=== PATIENT | female | born 1970 | race Caucasian/White ===

== ENCOUNTER 2017-01-16 15:20 | Inpatient (IN) | payer MEDICAID ==
[2017-01-16] MEDS ORDERED: FENTANYL 250 MCG/5 ML VIAL ONE ×2 (15:50→15:51)
[2017-01-16] MEDS ORDERED: FENTANYL 100 MCG/2 ML VIAL ONE ×3 (16:00→20:38)
[2017-01-16] MEDS ORDERED: LIDOCAINE HCL 1% 20 ML VIAL ONE (18:14)
[2017-01-16 18:49] LABS: BLOOD UREA NITROGEN 20 mg/dL (7-17); CALCIUM 9.3 mg/dL (8.4-10.2); CHLORIDE 107 mmol/L (98-107); CREATININE 0.7 mg/dL (0.5-1.0); EST GLOMERULAR FILTRATION RATE > 60 mL/min; GLUCOSE 108 mg/dL (70-100); POTASSIUM 4.5 mmol/L (3.5-5.1); SODIUM 141 mmol/L (137-145)
[2017-01-16 18:52] LABS: HEMATOCRIT 44.4 % (36.0-48.0); HEMOGLOBIN 15.3 g/dL (12.0-16.0); MEAN CELL VOLUME 86.5 fL (80.0-100.0); MEAN CORPUS. HGB CONCENTRATION 34.5 g/dL (32.0-36.0); MEAN CORPUSCULAR HEMOGLOBIN 29.8 pg (29.0-35.0); MEAN PLATELET VOLUME 8.4 fL (7.4-10.4); PLATELET COUNT 385 X 10^3uL (130-440); RED BLOOD COUNT 5.14 X 10^6uL (4.20-6.10); RED CELL DISTRIBUTION WIDTH 13.5 % (11.5-14.5); WHITE BLOOD COUNT 14.2 X 10^3uL (3.9-10.7)
[2017-01-16 18:54] LABS: INR 0.8
[2017-01-16] MEDS ORDERED: ceFAZolin 1 GM in NORMAL SALINE MINI-BAG+ 100 ML IV ONE (20:27)
[2017-01-16] MEDS ORDERED: ACETAMINOPHEN 325 MG TABLET PO PRN (20:27)
[2017-01-16] MEDS ORDERED: ONDANSETRON HCL 4 MG/2 ML VIAL IV PRN (20:27)
[2017-01-16] MEDS ORDERED: NICOTINE 21 MG PATCH ONE (20:46)
[2017-01-16] MEDS ORDERED: LORazepam 1 MG TABLET ONE (21:04)
--- NOTE | 2017-01-16 21:23 | ER PHYSICIAN DOCUMENTATION ---
Physician Documentation [facility] Name:Viviana Oakley Age:46 yrs Sex:Female :1970 Arrival Date:01/16/2017 Time:15:20 Bed6 Private MD: Zaire Cavanaugh Disposition: 01/16/17 19:17 Admit ordered for Gabriel Puga. Preliminary diagnosis is Distal Radius Fracture - : Acute, Left, Displaced. - Bed requested for Medical/Surgical. - Condition is Fair. - Problem is new. - Symptoms have improved. 23 HR OBS Yes HPI: 01/16 15:30 This 46 yrs old Female presents to ER via EMS with complaints of Arm Injury - cd LEFT. 15:30 The patient or guardian complains of decreased range of motion, deformity, injury. The cd complaints affect the left wrist. Context: The problem was sustained at a Roller skating [place], resulted from a fall, on an outstretched hand. Onset: The symptom(s)/episode began/occurred acutely, just prior to arrival. Treatment prior to arrival includes: prescription medications, splinting the affected extremity. Associated signs and symptoms: Pertinent positives: decreased range of motion, deformity, pain, swelling, tingling, in hand. Severity of symptoms: At their worst the symptoms were severe, in the emergency department the symptoms are unchanged. The patient has not experienced similar symptoms in the past. Historical: - Allergies: Aspirin; Positive latex allergy; Levaquin; - Home Meds: 1. Advair Diskus Inhl - PMHx: COPD; - PSHx: left ankle surg for fx; HYSTERECTOMY; CHOLECYSECTOMY; - Tetanus: < 10 years. - Ebola Screening: : Patient negative for fever greater than or equal to 101.5 degrees Fahrenheit, and additional compatible Ebola Virus Disease symptoms. Patient denies exposure to infectious person. Patient denies travel to an Ebola-affected area in the 21 days before illness onset. No symptoms or risks identified at this time. . - Immunization history: Unable to Obtain. - Social history: Smoking status: Patient states former smoker of tobacco. Patient/guardian denies using alcohol. ROS: 15:43 Cardiovascular: Negative for chest pain, palpitations, edema and pleuritic pain. cd Respiratory: Negative for shortness of breath, dyspnea on exertion, cough, sputum production, wheezing, hemoptysis and pleuritic chest pain. Abdomen/GI: Negative for abdominal pain, nausea, vomiting, diarrhea, constipation, distension, melena, hematochezia and hematemesis. Back: Negative for injury, pain or muscle spasms. 15:43 Skin: Negative for injury, rash, itching and discoloration. cd 15:43 Constitutional: Positive for poor PO intake. 15:43 MS/extremity: Positive for injury or acute deformity, decreased range of motion, deformity, pain, swelling, tingling, of the left wrist. 15:43 All other systems are negative. Exam: Head/Face: Normocephalic, atraumatic. Neck: Trachea midline, no thyromegaly or masses palpated, and no cervical lymphadenopathy. Supple, full range of motion without nuchal rigidity, or vertebral point tenderness. No Meningismus. Chest/axilla: Normal chest wall appearance and motion. Nontender with no deformity. No lesions are appreciated. Cardiovascular: Regular rate and rhythm with a normal S1 and S2. No gallops, murmurs, or rubs. Normal PMI, no JVD. No pulse deficits. Respiratory: Lungs have equal breath sounds bilaterally, clear to auscultation and percussion. No rales, rhonchi or wheezes noted. No increased work of breathing, no retractions or nasal flaring. Abdomen/GI: Soft, non-tender, with normal bowel sounds. No distension or tympany. No guarding or rebound. No evidence of tenderness throughout. Back: No spinal tenderness. No costovertebral tenderness. Full range of motion. 15:43 Skin: Warm, dry with normal turgor. Normal color with no rashes, no lesions, and no cd evidence of cellulitis. 15:43 Constitutional: The patient appears alert, awake, non-diaphoretic, non-toxic, well developed, well nourished, anxious, in obvious distress, severely distressed. 15:43 Musculoskeletal/extremity: Extremities: grossly normal except: noted in the left wrist: decreased ROM, deformity, pain, swelling, ROM: the patient is contracted, Circulation is intact in all extremities. Tingling of extremity. Vital Signs: 15:29 BP 132 / 79 (auto/); Pulse 104; Resp 22; Temp 98.9; Pulse Ox 94% on 3 lpm NC; Pain 8/10;rs 15:32 Pulse Ox 95% ; rs 15:42 Pulse Ox 96% ; rs 15:57 Pulse Ox 96% ; rs 16:30 BP 116 / 80; Pulse 100; Pulse Ox 97% on 2 lpm NC; st 17:59 Temp 100.4; st 17:59 Pulse 113; Pulse Ox 94% ; st 18:32 Pulse Ox 97% ; rs 18:32 Pulse 90; Resp 20; Pulse Ox 97% on 3 lpm NC; Pain 4/10; rs 18:47 BP 129 / 94 (auto/); Pulse 95; Resp 20; Pain 7/10; rs 18:47 Pulse Ox 96% on 3 lpm NC; rs 18:52 Pulse Ox 97% ; rs Jimmy Coma Score: 15:43 Eye Response: spontaneous(4). Verbal Response: oriented(5). Motor Response: obeys cd commands(6). Total: 15. Procedures: 15:43 Reduction: of the left wrist, using traction, manipulation, Immobilized with OCL cd splint, Patient tolerated poorly. Post reduction film - reveals improved alignment. MDM: 15:29 Patient medically screened. cd 15:43 Physician consultation: Gabriel Puga DO was called at 18:15, was contacted at 18:15, cd regarding admission, to the floor, consult, patient's condition, need to come to ED to see patient, and will see patient in ED, shortly, later today, Admit orders by Dr. Puga. Will see patient in ED tonight.. 15:45 Differential diagnosis: closed fracture, Needs ORIF. cd 15:50 Data interpreted: Pulse oximetry: on room air is 97 %. Interpretation: normal. cd 16:10 Test interpretation: by ED physician or midlevel provider: plain radiologic studies, cd Left Wrist X-Ray reveals a comminuted distal radius fracture with loss of volar tilt.. 17:50 Counseling: I had a detailed discussion with the patient and/or guardian regarding: the cd historical points, exam findings, and any diagnostic results supporting the discharge/admit diagnosis, lab results, radiology results, the need for further work-up and treatment in the hospital. Response to treatment: the patient's symptoms have mildly improved after treatment, Patient still having significant pain in spite of reduction and splinting. IV pain meds have not appreciably reduced the pain, and as a result, I will admit patient. 18:10 Data reviewed: vital signs, nurses notes, EMS record, old medical records, radiologic cd studies, and as a result, I will admit patient, initiate a consult, with an orthopedic surgeon. 01/16 18:51 Order name: BASIC METABOLIC PANEL; Complete Time: 19:13 EDMS 01/16 18:51 Interpretation: Normal. 01/16 18:53 Order name: CBC WITHOUT A DIFFERENTIAL; Complete Time: 19:13 EDMS 01/16 19:13 Interpretation: Normal Except: WHITE BLOOD COUNT 14.2. 01/16 18:56 Order name: PROTIME/INR; Complete Time: 19:13 EDMS 01/16 19:13 Interpretation: Normal. 01/16 15:30 Order name: Ice Packs; Complete Time: 16:16 01/16 15:30 Order name: NPO; Complete Time: 16:16 cd 01/16 16:23 Order name: Iv Saline Lock; Complete Time: 18:29 cd 01/16 16:25 Order name: 12-lead EKG; Complete Time: 19:13 01/16 16:25 Order name: Iv Saline Lock; Complete Time: 18:33 rs Dispensed Medications: 16:00 Drug: fentaNYL [place] 50 mcg; Route: Intranasal; Site: right nare; rs 17:00 Follow up: Response: Pain is decreased rs 18:00 Drug: NS 0.9% 500 ml; Volume: 500 ml; Route: IV; Rate: bolus; Infused Over: 1 hrs; rs Site: right forearm; Delivery: [place] Tubing; 18:28 Drug: fentaNYL (PF) 50 mcg; Route: IVP; Rate: 25 mcg/min; Infused Over: 2 mins; Site: rs right forearm; 19:00 Follow up: Response: Pain is decreased rs 18:55 Drug: fentaNYL (PF) 50 mcg; Route: IVP; Rate: 25 mg/min; Infused Over: 2 mins; Site: rs right forearm; 19:40 Follow up: Response: Pain is decreased rs 19:25 Drug: fentaNYL (PF) 50 mcg; Route: IVP; Rate: 25 mcg/min; Infused Over: 2 mins; Site: rs right forearm; 20:00 Follow up: Response: Pain is decreased rs 20:30 Drug: fentaNYL (PF) 50 mcg; Route: IVP; Rate: 25 mcg/min; Infused Over: 2 mins; Site: rs right forearm; 21:05 Follow up: Response: Pain is decreased rs 20:34 Drug: Nicotine Patch 21 mg; Route: Transdermal; Site: anterior chest wall; fc 21:04 Follow up: Response: No adverse reaction rs 20:57 Drug: Ativan 1 mg; Route: PO; rs 21:07 Follow up: Response: No adverse reaction rs Signatures: Ana Maria Segura RN RN rs Zaire Huerta MD MD cd collins, floyd
--- NOTE | 2017-01-16 21:23 | ER NURSING DOCUMENTATION ---
Nurse's Notes [facility] Name:Viviana Oakley Age:46 yrs Sex:Female :1970 Arrival Date:01/16/2017 Time:15:20 Bed6 Private MD: Diagnosis:Distal Radius Fracture-: Acute, Left, Displaced Presentation: 01/16 15:31 Acuity: RUDI 3 st 15:31 Presenting complaint: Patient states: C/O pain returning in her left wrist. Denies rs other injuries. Denies neck pain. Did not hit her head. EMS states: Fell backwards onto her hands while roller skating, c/o left wrist pain. Denies other injuries. No IV. Was given Fentanyl 25 mcg intranasally twice by amb crew. Transition of care: Other [facility]. Notified ED Physician of patient's arrival and CC Dr. Huerta notified. 15:31 Method Of Arrival: EMS: 410 rs Triage Assessment: 15:58 General: Appears distressed, uncomfortable, well developed, well nourished, well rs groomed, Behavior is anxious, crying, pleasant. Pain: Complains of pain in left wrist Pain does not radiate. Pain currently is 8 out of 10 on a pain scale. Pain began suddenly. Neuro: No deficits noted. Level of Consciousness is awake, alert, Oriented to person, place, time, event. Cardiovascular: No deficits noted. Capillary refill < 3 seconds Pulses are 3+ in right radial artery and left radial artery. Respiratory: No deficits noted. Respiratory effort is even, unlabored, Respiratory pattern is regular, symmetrical. Derm: No deficits noted. Skin is pink, warm & dry. Musculoskeletal: Circulation, motion, and sensation intact Capillary refill < 3 seconds Bony deformity noted of left wrist. Historical: - Allergies: Aspirin; Positive latex allergy; Levaquin; - Home Meds: 1. Advair Diskus Inhl - PMHx: COPD; - PSHx: left ankle surg for fx; HYSTERECTOMY; CHOLECYSECTOMY; - Tetanus: < 10 years. - Ebola Screening: : Patient negative for fever greater than or equal to 101.5 degrees Fahrenheit, and additional compatible Ebola Virus Disease symptoms. Patient denies exposure to infectious person. Patient denies travel to an Ebola-affected area in the 21 days before illness onset. No symptoms or risks identified at this time. . - Immunization history: Unable to Obtain. - Social history: Smoking status: Patient states former smoker of tobacco. Patient/guardian denies using alcohol. Screenin:14 Infectious Disease Risk None. Abuse screen: Denies threats or abuse. Nutritional rs screening: No deficits noted. Assessment: 17:10 General: pt complains that her fingers are numb and tingly. splint was loosened. cap st refill less then 2 sec's before and after splint adjustment. . 19:03 Neuro: Reports numbness in left fingers. rs Vital Signs: 15:29 BP 132 / 79 (auto/); Pulse 104; Resp 22; Temp 98.9; Pulse Ox 94% on 3 lpm NC; Pain 8/10;rs 15:32 Pulse Ox 95% ; rs 15:42 Pulse Ox 96% ; rs 15:57 Pulse Ox 96% ; rs 16:30 BP 116 / 80; Pulse 100; Pulse Ox 97% on 2 lpm NC; st 17:59 Temp 100.4; st 17:59 Pulse 113; Pulse Ox 94% ; st 18:32 Pulse Ox 97% ; rs 18:32 Pulse 90; Resp 20; Pulse Ox 97% on 3 lpm NC; Pain 4/10; rs 18:47 BP 129 / 94 (auto/); Pulse 95; Resp 20; Pain 7/10; rs 18:47 Pulse Ox 96% on 3 lpm NC; rs 18:52 Pulse Ox 97% ; rs Jimmy Coma Score: 15:43 Eye Response: spontaneous(4). Verbal Response: oriented(5). Motor Response: obeys cd commands(6). Total: 15. ED Course: 15:21 Patient arrived in ED. ama 15:29 Zaire Huerta MD is Attending Physician. cd 15:[address] 15:33 Port Xray Completed. pm1 15:38 Ana Maria Segura, NOAM is Primary Nurse. rs 16:00 Notified ED Physician of patient's arrival and chief complaint. Dr. Huerta notified. Arm rs band placed on Bed in low position Call Light in Reach HOB Elevated Side rails up x1. X-ray done. 16:14 Pulse Ox - RN Monitoring Only. Door closed. Noise minimized. Lights dimmed. Verbal rs reassurance given. Diet: Patient is NPO. 16:15 Assist Provider Splinting. rs 16:36 Pt outside to smoke a cigarette (per MD order). Awaiting surgery, at 8 pm. rs 18:07 Assist Provider Assist provider with reduction using traction, Performed by Zaire urrutia MD Immobilized with OCL splint, ann wrap, Patient tolerated extreme pain, crying. 18:08 Inserted peripheral IV: 20 gauge in right forearm and blood collected. per Kylee REDMAN. rs 18:26 Port Xray Completed. pm1 19:05 ED physician of. Notified left finger numbness. rs 19:12 EKG done. (by ED staff). rs 19:15 Gabriel Puga DO, Brian Beach MD is Admitting Physician. cd 19:16 Admitting Physician role handed off by Gabriel Puga DO, Michael Grant, MD cd 19:16 Gabriel Puga DO is Admitting Physician. cd Administered Medications: 16:00 Drug: fentaNYL [place] 50 mcg; Route: Intranasal; Site: right nare; rs 17:00 Follow up: Response: Pain is decreased rs 18:00 Drug: NS 0.9% 500 ml; Volume: 500 ml; Route: IV; Rate: bolus; Infused Over: 1 hrs; rs Site: right forearm; Delivery: [place] Tubing; 18:28 Drug: fentaNYL (PF) 50 mcg; Route: IVP; Rate: 25 mcg/min; Infused Over: 2 mins; Site: rs right forearm; 19:00 Follow up: Response: Pain is decreased rs 18:55 Drug: fentaNYL (PF) 50 mcg; Route: IVP; Rate: 25 mg/min; Infused Over: 2 mins; Site: rs right forearm; 19:40 Follow up: Response: Pain is decreased rs 19:25 Drug: fentaNYL (PF) 50 mcg; Route: IVP; Rate: 25 mcg/min; Infused Over: 2 mins; Site: rs right forearm; 20:00 Follow up: Response: Pain is decreased rs 20:30 Drug: fentaNYL (PF) 50 mcg; Route: IVP; Rate: 25 mcg/min; Infused Over: 2 mins; Site: rs right forearm; 21:05 Follow up: Response: Pain is decreased rs 20:34 Drug: Nicotine Patch 21 mg; Route: Transdermal; Site: anterior chest wall; fc 21:04 Follow up: Response: No adverse reaction rs 20:57 Drug: Ativan 1 mg; Route: PO; rs 21:07 Follow up: Response: No adverse reaction rs Outcome: 19:17 Decision to Admit by Provider. cd 21:02 Admitted to Med/surg accompanied by nurse, via wheelchair. rs 21:02 Condition: improved 21: Report given to Aaron SANTACRUZ 21:02 Instructed on need to admit Demonstrated understanding of 21:22 Patient left the ED. rs Signatures: Alecia Burks RN RN st Stalker, Rachael, RN RN rs Daley, Chris, MD MD cd McBride, Philisha pm1 Tarun Pereyra, Reg Reg yessy aguirre
[2017-01-16] MEDS: HYDROmorphone HCL 2 MG TABLET PO PRN (21:48)
[2017-01-16] MEDS ORDERED: O2 HUMIDIFIER 650 ML BOTTLE INHALATION ONE (23:34)
[2017-01-17] MEDS: HYDROmorphone HCL 2 MG TABLET PO PRN (02:46)
[2017-01-17] MEDS ORDERED: HYDROmorphone HCL 2 MG TABLET PO PRN ×2 (05:47→07:19)
[2017-01-17] MEDS ORDERED: ACETAMINOPHEN 1,000 MG/100 ML VIAL IV SCH ×2 (05:47→07:19)
[2017-01-17] MEDS ORDERED: ALBUTEROL 0.083% 2.5 MG/3 ML VIAL.NEB INHALATION PRN ×2 (05:47→07:19)
[2017-01-17] MEDS ORDERED: FAMOTIDINE IN SALINE, ISO-OSM 20 MG/50 ML PIGGYBACK IV SCH ×2 (05:47→07:19)
[2017-01-17] MEDS ORDERED: ACETAMINOPHEN 325 MG TABLET PO PRN ×2 (05:47→07:19)
[2017-01-17] MEDS ORDERED: MIDAZOLAM HCL 2 MG/2 ML SYR IV ONE ×2 (05:47→07:19)
[2017-01-17] MEDS ORDERED: ONDANSETRON HCL 4 MG/2 ML VIAL IV PRN ×2 (05:47→07:19)
[2017-01-17] MEDS ORDERED: ceFAZolin 1 GM in NORMAL SALINE MINI-BAG+ 100 ML IV ONE ×2 (05:47→07:19)
[2017-01-17] MEDS ORDERED: LACTATED RINGERS 1,000 ML IV SCH ×3 (06:00→08:00)
[2017-01-17] MEDS ORDERED: ALBUTEROL 0.083% 2.5 MG/3 ML VIAL.NEB INHALATION ONE (06:03)
[2017-01-17] MEDS ORDERED: FAMOTIDINE IN SALINE, ISO-OSM 50 ML IV ONE (06:04)
[2017-01-17] MEDS ORDERED: ROCURONIUM BROMIDE 50 MG/5 ML VIAL IV ONE (06:11)
[2017-01-17] MEDS ORDERED: SUCCINYLCHOLINE CHLORIDE 200 MG/10 ML VIAL ONE (06:11)
[2017-01-17] MEDS ORDERED: FENTANYL 250 MCG/5 ML VIAL ONE (06:11)
[2017-01-17] MEDS ORDERED: KETOROLAC TROMETHAMINE 30 MG/ML VIAL ONE (06:12)
[2017-01-17] MEDS ORDERED: DEXAMETHASONE 4 MG/ML VIAL ONE (06:12)
[2017-01-17] MEDS ORDERED: ONDANSETRON HCL 4 MG/2 ML VIAL ONE (06:12)
[2017-01-17] MEDS ORDERED: ceFAZolin 1 GM/10 ML VIAL ONE (06:13)
[2017-01-17] MEDS ORDERED: LIDOCAINE HCL 2% JELLY 1 APP/5 ML TUBE ONE (06:18)
[2017-01-17] MEDS ORDERED: ACETAMINOPHEN 1,000 MG/100 ML VIAL IV ONE (06:19)
[2017-01-17] MEDS ORDERED: BUPIVACAINE/EPI 0.25% 1 VIAL VIAL ONE (07:12)
[2017-01-17] MEDS ORDERED: BACITRACIN 50,000 UNITS VIAL IM ONE (07:13)
[2017-01-17] MEDS ORDERED: NORMAL SALINE FLUSH 10 ML ONE (07:14)
[2017-01-17] MEDS ORDERED: BACITRACIN 14 APP/14 GM TUBE TOPICAL ONE (07:14)
[2017-01-17] MEDS ORDERED: ONDANSETRON HCL 4 MG/2 ML VIAL IV ONE (07:19)
[2017-01-17] MEDS ORDERED: FENTANYL 100 MCG/2 ML VIAL IV PRN (07:19)
[2017-01-17] MEDS ORDERED: MORPHINE SULFATE 10 MG/ML SYR IV PRN (07:19)
[2017-01-17] MEDS ORDERED: HYDROmorphone HCL 1 MG/ML SYR IV PRN (07:19)
[2017-01-17] MEDS ORDERED: FENTANYL 100 MCG/2 ML VIAL ONE (08:30)
[2017-01-17 09:02] VITALS: TEMP 98.6
[2017-01-17 09:11] VITALS: RESP 16
[2017-01-17 09:21] VITALS: PULSE 103
[2017-01-17 09:32] VITALS: BP 108/66; O2SAT 90
--- NOTE | 2017-01-17 14:29 | OPERATIVE REPORT ---
DATE OF SURGERY: 01/17/17 SURGEON: Gabriel Puga DO ANESTHESIA: General. PREOPERATIVE DIAGNOSIS: Left distal radius fracture. POSTOPERATIVE DIAGNOSIS: Left distal radius fracture. OPERATION PERFORMED: Left distal radius open reduction, internal fixation. ESTIMATED BLOOD LOSS: Minimal. CONDITION: Stable. COMPLICATIONS: None. TOTAL TOURNIQUET TIME: 93 minutes. PROCEDURE NOTE: The patient was brought to the operating room suite and after administration of general anesthesia the left upper extremity was prepped and draped in a sterile fashion after applying a well padded tourniquet to the left proximal arm. The incision site was injected with 0.25% bupivacaine with epinephrine prior to incision. The incision was made over the level of the flexor carpal radialis on the volar aspect of the wrist. Dissection was carried down to this structure, which was retracted ulnarly, and the incision was made in the floor of the tendon sheath. A fracture hematoma was immediately visible and pronator quadratus was swept ulnarly, revealing the fracture. This area was copiously irrigated with bacitracin infused with normal saline and a reduction maneuver was performed. Two K-wires were inserted through the radial styloid maintaining the reduction which was obtained. A [employer] locking plate was placed and fluoroscopic orthogonal views confirmed optimal positioning. Shaft screws were inserted and locked into place, followed by distal periarticular locking screws which were all fully threaded in a divergent pattern. All K-wires were removed and the fluoroscopic imaging confirmed that the plate was positioned optimally. The patient did have significant comminution with multiple fragments, both intraarticular and extra. These were all reduced, and as their periosteal sleeve was maintained and there were no loose fragments. The area was again copiously irrigated with bacitracin infused with normal saline and closed in a stepwise fashion utilizing 0 Vicryl for the pronator quadratus and deep fascia, followed by 3-0 Vicryl, followed by 3-0 nylon at the level of the skin in a running modified horizontal mattress suture. The patient was transferred from the operating room suite to the recovery room in stable condition. UNITED HEALTH SERVICESLaquita
--- NOTE | 2017-01-17 14:38 | DISCHARGE SUMMARY ---
DATE OF DISCHARGE: 01/17/17 PHYSICIAN: Gabriel Puga DO SUMMARY: Patient was admitted to the hospital on 01/16/17 with a diagnosis of a left distal radius and ulna fracture. She was admitted for pain control and neurovascular watch. Patient underwent open reduction, internal fixation early the next morning at 6:30 a.m. and the patient tolerated the procedure well. She was discharged home with instructions to keep the arm iced and elevated. She should follow up with an orthopedic surgeon in 8-10 days and have her sutures removed. She was discharged home with oral analgesia. RICARDO
--- NOTE | 2017-01-17 14:38 | HISTORY & PHYSICAL ---
DATE OF CONSULTATION: 01/16/17 PHYSICIAN: Gabriel Puga DO HISTORY OF PRESENT ILLNESS: Patient is a 46-year-old female who was roller skating out at the [facility] and had a Foosh injury falling on the outstretched hand last evening, 01/16/17. PAST MEDICAL HISTORY 1. Mild chronic obstructive pulmonary disease. PAST SURGICAL HISTORY 1. Hysterectomy. 2. Gallbladder. 3. Ankle surgery. SOCIAL HISTORY: Tobacco smoke ALLERGIES: Tylenol and aspirin. PHYSICAL EXAMINATION VITAL SIGNS: Blood pressure 132/79, pulse 104. GENERAL: Alert and oriented x3 in somewhat visible pain and distress.. HEENT: Pupils are equally round and reactive to light and accommodation. Extraocular muscles are intact. CHEST: Clear to auscultation bilaterally. HEART: Regular rate and rhythm with normal S1, S2. ABDOMEN: Soft, nontender, nondistended. EXTREMITIES: She had decreased sensation in her fingertips and hands. Evaluation of the left upper extremity demonstrates pain with motion of the fingers and diminished sensation of her fingers. Patient had just undergone a closed reduction by the Emergency Room physician and did have a hematoma block. Patient did state that she had some minor diminished sensation on the tips of her fingers prior to the injections. IMAGING: Plain film x-rays demonstrate an intraarticular distal radius fracture with comminution. Patient also has a nondisplaced distal ulna fracture. IMPRESSION: Left distal radius fracture and nondisplaced distal ulna fracture. PLAN: Open reduction, internal fixation. Patient is in significant pain and will be admitted for neurovascular checks and pain control with IV analgesia overnight and she will have surgery done in the morning, after a nights worth of ice and elevation to diminish swelling after her closed reduction MTDD
--- NOTE | 2017-01-19 13:54 | RADIOLOGY REPORT ---
A limited single portable view of the chest demonstrates the heart, vessels and lungs to be unremarkable. No infiltrate, fluid or pneumothorax is seen. IMPRESSION: Unremarkable limited single portable view of the chest. MTDD
--- NOTE | 2017-01-19 13:56 | RADIOLOGY REPORT ---
Initial views of the left wrist at 1537 hours demonstrates a comminuted intraarticular fracture of the distal radius. There is dorsal impaction resulting in reversal of the normal volar tilt. Associated ulnar styloid process fracture is noted. The carpus appears intact. Additional films at 1833 hours demonstrates interval reduction and splinting. No new abnormality is identified. IMPRESSION: Comminuted impacted left Colles fracture with subsequent reduction and splinting. RICARDO
--- NOTE | 2017-01-19 13:58 | RADIOLOGY REPORT ---
Two limited views of the left wrist from the C-Arm in the operating room are compared with films from the previous date. There has been interval open reduction and internal fixation with a volar plate and multiple screws. No other change is identified. IMPRESSION: Interval open reduction and internal fixation of the left Colles fracture. RICARDO
== END 2017-01-17 09:47 | disposition home or self-care (01) | DRG 512 ==
LOC: ER 15:20 → IN 20:24 → OBSVTOIN 20:24
PROVIDERS: ADMIT Orthopaedic Surgery; ATTEND Orthopaedic Surgery
PROC: 0PSJ04Z Reposition Left Radius with Internal Fixation Device, Open Approach (ICD-10-PCS; principal; 2017-01-16)
DX: S62.92XA Unspecified fracture of left hand, initial encounter for closed fracture (principal); W01.0XXA Fall on same level from slipping, tripping and stumbling without subsequent striking against object, initial encounter; M25.532 Pain in left wrist; Z72.0 Tobacco use
CPT/HCPCS: 71010; 76000; 80048; 85027; 85610; 93005; 96374; 96376; 99285; A0425; A0427; C1713; E0555; J0690; J1885; J2250; J2405; J7613; S4990